=== PATIENT | female | born 1980 | race Caucasian/White ===

== ENCOUNTER 2017-03-20 14:34 | Emergency (ER) | payer MEDICAID, OTHER ==
--- NOTE | 2017-03-20 22:46 | Emergency Room Report ---
History of Present Illness General Chief Complaint: To Be Triaged Present Illness HPI This patient left prior to evaluation by medical provider. Medical Decision Making PA Attestation Dr. Lerma is my supervising Physician whom patient management has been discussed with. ER Course This patient left prior to evaluation by medical provider. Disposition: LEFT W/OUT BEING SEEN Condition: Unknown Referrals: [facility] [place],REFERRING (PCP) Rosalva Santos Mar 20, 2017 22:46
--- NOTE | 2017-03-20 22:46 | Emergency Room Report ---
History of Present Illness General Chief Complaint: To Be Triaged Present Illness HPI This patient left prior to evaluation by medical provider. Medical Decision Making PA Attestation Dr. Lerma is my supervising Physician whom patient management has been discussed with. ER Course This patient left prior to evaluation by medical provider. Disposition: LEFT W/OUT BEING SEEN Condition: Unknown Referrals: [facility] [place],REFERRING (PCP) Rosalva Santos Mar 20, 2017 22:46
--- NOTE | 2017-03-20 22:46 | Emergency Room Report ---
History of Present Illness General Chief Complaint: To Be Triaged Present Illness HPI This patient left prior to evaluation by medical provider. Medical Decision Making PA Attestation Dr. Lerma is my supervising Physician whom patient management has been discussed with. ER Course This patient left prior to evaluation by medical provider. Disposition: LEFT W/OUT BEING SEEN Condition: Unknown Referrals: [facility] [place],REFERRING (PCP) Rosalva Santos Mar 20, 2017 22:46
== END 2017-03-20 15:16 | disposition left against medical advice (07) ==
LOC: EMR 15:16
DX: Z04.1 Encounter for examination and observation following transport accident (principal); Z53.21 Procedure and treatment not carried out due to patient leaving prior to being seen by health care provider
CPT/HCPCS: 99281

== ENCOUNTER 2017-05-04 18:35 | Emergency (ER) | payer OTHER ==
[~2017-05-04] VITALS: Ht 170.2 cm; Wt 68.0 kg
[2017-05-04] MEDS ORDERED: METRONIDAZOLE500 MG ORAL (18:57)
[2017-05-04 19:30] VITALS: BP 125/62
[2017-05-04] MEDS ORDERED: Ketorolac 60mg Inj IM ONE (19:45)
[2017-05-04] MEDS ORDERED: IBUPROFEN600 MG ORAL (20:15)
[2017-05-04] MEDS ORDERED: ROBAXIN-750750 MG PO (20:15)
[2017-05-04] MEDS ORDERED: PREDNISONE20 MG ORAL (20:24)
[2017-05-04 20:30] VITALS: BP 125/62
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
== END 2017-05-04 20:30 | disposition home or self-care (01) ==
LOC: EMR 19:00
DX: S16.1XXA Strain of muscle, fascia and tendon at neck level, initial encounter (principal); V73.6XXA Passenger on bus injured in collision with car, pick-up truck or van in traffic accident, initial encounter; Y92.410 Unspecified street and highway as the place of occurrence of the external cause; G89.29 Other chronic pain; J45.909 Unspecified asthma, uncomplicated; Z88.6 Allergy status to analgesic agent; Z88.0 Allergy status to penicillin
CPT/HCPCS: 96372; 99283